=== PATIENT | female | born 1970 | race American Indian/Alaskan Native ===

== ENCOUNTER 2017-01-02 11:54 | Emergency (ER) | payer SELFPAY ==
[2017-01-02] MEDS ORDERED: CATAPRES ONE (12:09)
[2017-01-02] MEDS ORDERED: CATAPRES PO ONE (12:13)
[2017-01-02 12:19] LABS: Basophils % (Auto) 0.6 % (0.0-1.8); Eosinophils % (Auto) 2.7 % (0.0-4.3); Hematocrit 37.5 % (30.3-42.9); Hemoglobin 12.4 gm/dl (10.1-14.3); Mean Corpuscular HGB Conc 33 % (30-34); Mean Corpuscular Hemoglobin 28 pg (28-32); Mean Corpuscular Volume 84 fl (79-97); Platelet Count 225 K/mm3 (140-440); Red Blood Count 4.47 M/mm3 (3.65-5.03); Red Cell Distribution Width 13.7 % (13.2-15.2); White Blood Count 5.9 K/mm3 (4.5-11.0)
[2017-01-02 12:37] LABS: Blood Urea Nitrogen 9 mg/dL (7-17); Calcium 9.3 mg/dL (8.4-10.2); Carbon Dioxide 27 mmol/L (22-30); Glucose 429 mg/dL (65-100)
[2017-01-02 12:37] LABS: Bilirubin,Urine NEG (Negative); Blood,Urine NEG (Negative); Ketones,Urine NEG (Negative); Leukocyte Esterase,Urine TR (Negative); Mucus,Urine FEW /HPF; Nitrite,Urine NEG (Negative); Urobilinogen,Urine < 2.0 mg/dL (<2.0)
[2017-01-02 12:38] LABS: Anion Gap 17 mmol/L; Chloride 96.4 mmol/L (98-107); Potassium 4.3 mmol/L (3.6-5.0); Sodium 136 mmol/L (137-145)
--- NOTE | 2017-01-02 13:41 | Cat Scan Report ---
CRANIAL CT SCAN: History: Dizziness/hypertension. Serial contiguous axial images were obtained through the cranium. Intravenous contrast material was not administered. The ventricles are normal in size and appearance. There is no mass effect or midline shift. No areas of abnormally increased or decreased attenuation are seen. No mass lesion is seen. The mastoid air cells and visualized portions of the sinuses are normal. IMPRESSION: Cranial CT scan within normal limits.
[2017-01-02] MEDS ORDERED: NACL 0.9% 1000 ML 1,000 ML IV ONE (17:04)
--- NOTE | 2017-01-02 17:09 | Emergency Department Report ---
HPI - General Chief Complaint: High BP Time Seen by Provider: 01/02/17 16:51 - HPI HPI: Room 24 The patient is a 46-year-old female presenting with a chief complaint dizziness headache blurred vision hypertension and hyperglycemia. Patient states she's been out of her metformin and blood pressure medication for approximately one year. Patient states for the past 6-7 months she has had intermittent dizziness and headache associated with blurred vision. The patient states she still has a headache and gives a score of 8.5/10 Location: See above Duration: 7 months Quality:, Hyperglycemia Severity: Glucose 400s, headache 8.5/10 Modifying factors: [see above] Context: [see above] Mode of transportation: [not driving] ED Past Medical Hx - Past Medical History Hx Hypertension: Yes Hx Diabetes: Yes - Surgical History Additional Surgical History: Hysterectomy - Family History Family history: no significant - Social History Smoking Status: Never Smoker Substance Use Type: None - Medications Home Medications: Home Medications Medication Instructions Recorded Confirmed Last Taken Type Mv,Ca,Fe,Min/FA/Guarana/Caff [One 1 tab PO QDAY 01/02/17 01/02/17 Unknown History Daily Tablet] amLODIPine [Norvasc] 10 mg PO DAILY #90 tab 01/02/17 Unknown Rx metFORMIN [Glucophage] 500 mg PO BID #120 tablet 01/02/17 Unknown Rx ED Review of Systems ROS: Stated complaint: HBP/LOW SUGAR/DIZZY/BLURRED VISION Other details as noted in HPI Comment: All other systems reviewed and negative Constitutional: denies: chills, fever Eyes: vision change ENT: denies: ear pain, throat pain Respiratory: denies: cough, shortness of breath, wheezing Cardiovascular: denies: chest pain, palpitations Endocrine: other (hyperglycemia) Gastrointestinal: denies: abdominal pain, nausea, diarrhea Genitourinary: denies: urgency, dysuria, discharge Musculoskeletal: denies: back pain, joint swelling, arthralgia Skin: denies: rash, lesions Neurological: headache. denies: weakness, paresthesias Psychiatric: denies: anxiety, depression Hematological/Lymphatic: denies: easy bleeding, easy bruising Physical Exam - Physical Exam Vital Signs: Vital Signs 01/02/17 01/02/17 01/02/17 12:00 12:17 16:52 Temperature 98 F 98.1 F Pulse Rate 88 87 81 Respiratory 16 16 Rate Blood Pressure 227/137 227/137 Blood Pressure 138/95 [Right] O2 Sat by Pulse 98 100 Oximetry Physical Exam: GENERAL: The patient is well-developed well-nourished female lying on stretcher not appearing to be in acute distress. [] HEENT: Normocephalic. Atraumatic. Extraocular motions are intact. Patient has moist mucous membranes. NECK: Supple. Trachea midline CHEST/LUNGS: Clear to auscultation. There is no respiratory distress noted. HEART/CARDIOVASCULAR: Regular. There is no tachycardia. There is no gallop rub or murmur. ABDOMEN: Abdomen is soft, nontender. Patient has normal bowel sounds. There is no abdominal distention. SKIN: There is no rash. There is no edema. There is no diaphoresis. NEURO: The patient is awake, alert, and oriented. The patient is cooperative. The patient has no focal neurologic deficits. The patient has normal speech. Cranial nerves II through XII grossly intact, no drift, clean room assembler 5+/5 bilaterally MUSCULOSKELETAL: There is no evidence of acute injury. ED Course Vital Signs 01/02/17 01/02/17 01/02/17 12:00 12:17 16:52 Temperature 98 F 98.1 F Pulse Rate 88 87 81 Respiratory 16 16 Rate Blood Pressure 227/137 227/137 Blood Pressure 138/95 [Right] O2 Sat by Pulse 98 100 Oximetry ED Medical Decision Making - Lab Data Result diagrams: 01/02/17 12:06 01/02/17 12:06 Laboratory Tests 01/02/17 01/02/17 01/02/17 11:57 12:06 12:06 WBC 5.9 RBC 4.47 Hgb 12.4 Hct 37.5 MCV 84 MCH 28 MCHC 33 RDW 13.7 Plt Count 225 Lymph % (Auto) 33.8 [place] % (Auto) 5.4 Eos % (Auto) 2.7 Baso % (Auto) 0.6 Lymph # 2.0 [place] # 0.3 Eos # 0.2 Baso # 0.0 Seg Neutrophils % 57.5 Seg Neutrophils # 3.4 VBG pH Sodium 136 L Potassium 4.3 Chloride 96.4 L Carbon Dioxide 27 Anion Gap 17 BUN 9 Creatinine 0.6 L Estimated GFR > 60 BUN/Creatinine Ratio 15.00 Glucose 429 H POC Glucose 419 H Calcium 9.3 Urine Color Urine Turbidity Urine pH Ur Specific [place] Urine Protein Urine Glucose (UA) Urine Ketones Urine Blood Urine Nitrite Urine Bilirubin Urine Urobilinogen Ur Leukocyte Esterase Urine WBC (Auto) Urine RBC (Auto) U Epithel Cells (Auto) Urine Mucus 01/02/17 01/02/17 01/02/17 12:06 17:00 Unknown WBC RBC Hgb Hct MCV MCH MCHC RDW Plt Count Lymph % (Auto) [place] % (Auto) Eos % (Auto) Baso % (Auto) Lymph # [place] # Eos # Baso # Seg Neutrophils % Seg Neutrophils # VBG pH 7.337 Sodium Potassium Chloride Carbon Dioxide Anion Gap BUN Creatinine Estimated GFR BUN/Creatinine Ratio Glucose POC Glucose 454 H Calcium Urine Color Straw Urine Turbidity Clear Urine pH 6.0 Ur Specific [place] 1.028 Urine Protein 30 mg/dl Urine Glucose (UA) >=500 Urine Ketones Neg Urine Blood Neg Urine Nitrite Neg Urine Bilirubin Neg Urine Urobilinogen < 2.0 Ur Leukocyte Esterase Tr Urine WBC (Auto) 1.0 Urine RBC (Auto) 3.0 U Epithel Cells (Auto) 1.0 Urine Mucus Few - Radiology Data Radiology results: report reviewed (CT head), image reviewed (CT head) CT head (read by radiologist)-cranial CT scan within normal limits - Differential Diagnosis hypertension, hyperglycemia, DKA Critical care attestation.: If time is entered above; I have spent that time in minutes in the direct care of this critically ill patient, excluding procedure time. ED Disposition Clinical Impression: Uncontrolled hypertension, Uncontrolled diabetes mellitus Disposition: DISCHARGED TO HOME OR SELFCARE Is pt being admited?: No Does the pt Need Aspirin: No Condition: Stable Instructions: How to Check Your Blood Sugar (ED), Diabetes Mellitus Type 2 in Adults (ED), Hypertension (ED) Additional Instructions: Return to the emergency department immediately should you develop worsening symptoms, fever, inability to tolerate food or liquid or any other concerns. Prescriptions: amLODIPine [Norvasc] 10 mg PO DAILY #90 tab metFORMIN [Glucophage] 500 mg PO BID #120 tablet Referrals: MAX PETERSON MD [Staff Physician] - 3-5 Days Time of Disposition: 19:19
[2017-01-02 19:29] VITALS: BP 144/98
== END 2017-01-02 19:20 | disposition home or self-care (01) ==
LOC: ED 11:54
DX: I10 Essential (primary) hypertension (principal); E11.9 Type 2 diabetes mellitus without complications; Z90.710 Acquired absence of both cervix and uterus
CPT/HCPCS: 36415; 70450; 80048; 81001; 82805; 82962; 85025; 96361; 96374; 99285; J7030; J1815

== ENCOUNTER 2018-09-27 03:43 | Emergency (ER) | payer SELFPAY ==
[2018-09-27] MEDS ORDERED: CATAPRES ONE (04:28)
[2018-09-27] MEDS ORDERED: CATAPRES PO ONE ×2 (04:29→10:13)
[2018-09-27] MEDS ORDERED: ULTRAM PO ONE (08:33)
[2018-09-27] MEDS ORDERED: BICILLIN L-A IM ONE (08:33)
--- NOTE | 2018-09-27 08:33 | Emergency Department Report ---
ED ENT HPI - General Chief complaint: Dental/Oral Stated complaint: ABCESS ON GUMS Time Seen by Provider: 09/27/18 08:29 Source: patient Mode of arrival: Ambulatory Limitations: No Limitations - History of Present Illness Initial comments: This is a 47-year-old -Malag[place] female who presents to the and gum swelling for 1 week. Patient states she had a fractured tooth on the left lower side for several months which recently started bothering her couple weeks back. She noticed some swelling and discomfort over the past week. Now she is report ing pain is 10 out of 10 on pain scale and pain is worse with talking and eating. She reports pain as a throbbing constant sensation. She denies drooling, sore throat, difficulty swallowing, or fever. MD complaint: tooth pain Onset/Timin -: week(s) Location: tooth # (#18) 1 - Broken tooth and gum swelling Severity: severe Severity scale (0 -10): 10 Quality: constant, other (throbbing) Consistency: constant Improves with: none Worsens with: eating, movement Context- Dental: history of dental caries, poor dental care Associated Symptoms: gum swelling, toothache. denies: fever, cough, pain with swallowing, sore throat, tinnitus, hearing loss, discharge from ear, rhinorrhea - Related Data Home Medications Medication Instructions Recorded Confirmed Last Taken Mv-Mins/Folic Acid/Guarana/Caf 1 tab PO QDAY 01/02/17 01/02/17 Unknown [One Daily Tablet] Previous Rx's Medication Instructions Recorded Last Taken Type amLODIPine [Norvasc] 10 mg PO DAILY #90 tab 01/02/17 Unknown Rx metFORMIN [Glucophage] 500 mg PO BID #120 tablet 01/02/17 Unknown Rx Acetaminophen/Codeine [Tylenol 1 tab PO Q6H PRN #12 tab 09/27/18 Unknown Rx /Codeine # 3 tab] Amlodipine Besylate [Norvasc] 5 mg PO DAILY #30 tablet 09/27/18 Unknown Rx Clindamycin [Clindamycin CAP] 300 mg PO Q6H #21 capsule 09/27/18 Unknown Rx Naproxen [Naprosyn] 500 mg PO TID #15 tablet 09/27/18 Unknown Rx hydroCHLOROthiazide 12.5 mg PO DAILY #30 tablet 09/27/18 Unknown Rx [Hydrochlorothiazide] metFORMIN [Glucophage] 500 mg PO BID #120 tablet 09/27/18 Unknown Rx Allergies Allergy/AdvReac Type Severity Reaction Status Date / Time No Known Allergies Allergy Unverified 02/06/16 07:52 ED Dental HPI - General Chief complaint: Dental/Oral Stated complaint: ABCESS ON GUMS Time Seen by Provider: 09/27/18 08:29 Source: patient Mode of arrival: Ambulatory Limitations: No Limitations - Related Data Home Medications Medication Instructions Recorded Confirmed Last Taken Mv-Mins/Folic Acid/Guarana/Caf 1 tab PO QDAY 01/02/17 01/02/17 Unknown [One Daily Tablet] Previous Rx's Medication Instructions Recorded Last Taken Type amLODIPine [Norvasc] 10 mg PO DAILY #90 tab 01/02/17 Unknown Rx metFORMIN [Glucophage] 500 mg PO BID #120 tablet 01/02/17 Unknown Rx Acetaminophen/Codeine [Tylenol 1 tab PO Q6H PRN #12 tab 09/27/18 Unknown Rx /Codeine # 3 tab] Amlodipine Besylate [Norvasc] 5 mg PO DAILY #30 tablet 09/27/18 Unknown Rx Clindamycin [Clindamycin CAP] 300 mg PO Q6H #21 capsule 09/27/18 Unknown Rx Naproxen [Naprosyn] 500 mg PO TID #15 tablet 09/27/18 Unknown Rx hydroCHLOROthiazide 12.5 mg PO DAILY #30 tablet 09/27/18 Unknown Rx [Hydrochlorothiazide] metFORMIN [Glucophage] 500 mg PO BID #120 tablet 09/27/18 Unknown Rx Allergies Allergy/AdvReac Type Severity Reaction Status Date / Time No Known Allergies Allergy Unverified 02/06/16 07:52 ED Review of Systems ROS: Stated complaint: ABCESS ON GUMS Other details as noted in HPI Constitutional: denies: chills, fever ENT: dental pain. denies: ear pain, throat pain, hearing loss, epistaxis, congestion Respiratory: denies: cough, shortness of breath, wheezing Cardiovascular: denies: chest pain, palpitations Gastrointestinal: denies: abdominal pain, nausea, diarrhea Neurological: denies: headache, weakness, paresthesias Psychiatric: denies: anxiety, depression ED Past Medical Hx - Past Medical History Previous Medical History?: Yes Hx Hypertension: Yes Hx Diabetes: Yes - Surgical History Additional Surgical History: Hysterectomy - Social History Smoking Status: Never Smoker Substance Use Type: Alcohol - Medications Home Medications: Home Medications Medication Instructions Recorded Confirmed Last Taken Type Mv-Mins/Folic Acid/Guarana/Caf 1 tab PO QDAY 01/02/17 01/02/17 Unknown History [One Daily Tablet] amLODIPine [Norvasc] 10 mg PO DAILY #90 tab 01/02/17 Unknown Rx metFORMIN [Glucophage] 500 mg PO BID #120 tablet 01/02/17 Unknown Rx Acetaminophen/Codeine [Tylenol 1 tab PO Q6H PRN #12 tab 09/27/18 Unknown Rx /Codeine # 3 tab] Amlodipine Besylate [Norvasc] 5 mg PO DAILY #30 tablet 09/27/18 Unknown Rx Clindamycin [Clindamycin CAP] 300 mg PO Q6H #21 capsule 09/27/18 Unknown Rx Naproxen [Naprosyn] 500 mg PO TID #15 tablet 09/27/18 Unknown Rx hydroCHLOROthiazide 12.5 mg PO DAILY #30 tablet 09/27/18 Unknown Rx [Hydrochlorothiazide] metFORMIN [Glucophage] 500 mg PO BID #120 tablet 09/27/18 Unknown Rx ED Physical Exam - General Limitations: No Limitations General appearance: alert, in no apparent distress, obese (morbidly obese) - ENT ENT exam: Present: mucous membranes moist, other (partial tooth #18, mucosal swelling, tenderness, and no palpable pockets or drainage) - Neck Neck exam: Present: normal inspection - Respiratory Respiratory exam: Present: normal lung sounds bilaterally. Absent: respiratory distress - Cardiovascular Cardiovascular Exam: Present: regular rate, normal rhythm. Absent: systolic murmur, diastolic murmur, rubs, gallop - GI/Abdominal GI/Abdominal exam: Present: soft, normal bowel sounds - Neurological Exam Neurological exam: Present: alert, oriented X3, normal gait - Psychiatric Psychiatric exam: Present: normal affect, normal mood - Skin Skin exam: Present: warm, dry, intact, normal color. Absent: rash ED Course Vital Signs 09/27/18 09/27/18 09/27/18 03:58 04:42 08:57 Temperature 97.8 F Pulse Rate 81 81 82 Respiratory 20 20 Rate Blood Pressure 248/137 248/137 Blood Pressure 212/129 [Left] O2 Sat by Pulse 100 99 Oximetry 09/27/18 09/27/18 09/27/18 09:21 10:10 10:23 Temperature Pulse Rate 82 86 86 Respiratory 17 Rate Blood Pressure 212/129 204/115 Blood Pressure 204/115 [Left] O2 Sat by Pulse 98 Oximetry 09/27/18 13:21 Temperature Pulse Rate 79 Respiratory Rate Blood Pressure Blood Pressure 139/77 [Left] O2 Sat by Pulse Oximetry - Reevaluation(s) Reevaluation #1: 09/27/18 08:56 History of hypertension and off medication for several months. Blood pressure remains to 48/137 after clonidine. Given amlodipine and hydrochlorothiazide. Reevaluation #2: 09/27/18 10:17 Blood pressure remains elevated. Ordered labs and given clonidine 0.1 mg po. Reevaluation #3: 09/27/18 13:27 Patient's blood pressure 139/77 and glucose 231. Patient will be started on blood pressure medication and refill her metformin. She will need to follow-up with her primary care provider. ED Medical Decision Making - Lab Data Result diagrams: 09/27/18 10:18 09/27/18 10:18 - Medical Decision Making This is a 47-year-old female that presents with tooth abscess, gum swelling, and fractured tooth #18. Patient is stable and was examined by me. Blood pressure elevated on arrival. Patient was given clonidine while in triage. Susceptible of fractured tooth. Given tramadol once in ER. Start clindamycin, Tylenol No. 3, and naproxen. On reevaluation blood pressure remained elevated. Given amlodipine 5 mg by mouth 1 and hydrochlorothiazide 12.5 mg by mouth once. Patient has a history of hypertension and diabetes. Consulted attending, Dr. Dillon regarding elevated blood pressure. Obtained a BMP in CBC. Glucose 372. IV site initiated. Patient given regular insulin per protocol and normal saline. She has been off medication for several months. Start amlodipine, hydrochlorothiazide, and metformin. Patient will follow up with a primary care doctor [facility] or [facility]. Referral to emergency dental clinics. Discussed plan with patient. She agreed with ER plan. Discharged home stable. Follow up with dentist and PCP. Critical care attestation.: If time is entered above; I have spent that time in minutes in the direct care of this critically ill patient, excluding procedure time. ED Disposition Clinical Impression: Toothache, Asymptomatic hypertension Fractured tooth Qualifiers: Encounter type: initial encounter Fracture type: closed Qualified Code(s): S02.5XXA - Fracture of tooth (traumatic), initial encounter for closed fracture Uncontrolled diabetes mellitus Qualifiers: Diabetes mellitus type: type 2 Glycemic state: with hyperglycemia Qualified Code(s): E11.65 - Type 2 diabetes mellitus with hyperglycemia Disposition: TO HOME OR SELFCARE Is pt being admited?: No Does the pt Need Aspirin: No Condition: Stable Instructions: Diabetes Mellitus Type 2 in Adults (ED), Acute dental trauma (ED), DASH Eating Plan (ED), Hypertension (ED), Toothache (ED) Additional Instructions: Complete all days of clindamycin as prescribed. The pain medication every 6 hours as needed for pain. Follow up with Dentist in 24-72 hours. Prescriptions: Acetaminophen/Codeine [Tylenol /Codeine # 3 tab] 1 tab PO Q6H PRN #12 tab PRN Reason: Pain , Severe (7-10) Amlodipine Besylate [Norvasc] 5 mg PO DAILY #30 tablet Clindamycin [Clindamycin CAP] 300 mg PO Q6H #21 capsule hydroCHLOROthiazide [Hydrochlorothiazide] 12.5 mg PO DAILY #30 tablet metFORMIN [Glucophage] 500 mg PO BID #120 tablet Naproxen [Naprosyn] 500 mg PO TID #15 tablet Referrals: [facility] [Outside] - 3-5 Days [facility] [Outside] - 3-5 Days [facility] [Outside] - 3-5 Days [facility] [Outside] - 3-5 Days [facility] [Outside] - 3-5 Days Forms: Work/School Release Form(ED) Time of Disposition: 08:39
[2018-09-27] MEDS ORDERED: HCTZ PO ONE (08:57)
[2018-09-27] MEDS ORDERED: NORVASC PO ONE (08:57)
[2018-09-27 10:29] LABS: Basophils % (Auto) 0.7 % (0.0-1.8); Eosinophils # (Auto) 0.1 K/mm3 (0.0-0.4); Eosinophils % (Auto) 1.4 % (0.0-4.3); Hematocrit 35.8 % (30.3-42.9); Hemoglobin 12.1 gm/dl (10.1-14.3); Lymphocytes # (Auto) 1.6 K/mm3 (1.2-5.4); Lymphocytes % (Auto) 22.6 % (13.4-35.0); Mean Corpuscular HGB Conc 34 % (30-34); Mean Corpuscular Volume 81 fl (79-97); Monocytes # (Auto) 0.3 K/mm3 (0.0-0.8); Monocytes % (Auto) 4.5 % (0.0-7.3); Platelet Count 259 K/mm3 (140-440); Red Blood Count 4.43 M/mm3 (3.65-5.03); Red Cell Distribution Width 14.3 % (13.2-15.2)
[2018-09-27 10:49] LABS: BUN/Creatinine Ratio 15; Blood Urea Nitrogen 9 mg/dL (7-17); Calcium 9.2 mg/dL (8.4-10.2); Hemolysis Index 3
[2018-09-27] MEDS ORDERED: HumuLIN R IV ONE ×2 (10:54→10:57)
[2018-09-27] MEDS ORDERED: NACL 0.9% 500 ML 500 ML IV ONE (10:54)
[2018-09-27 13:22] VITALS: BP 139/77
== END 2018-09-27 13:42 | disposition home or self-care (01) ==
LOC: ED 03:43
DX: S02.5XXA Fracture of tooth (traumatic), initial encounter for closed fracture (principal); I10 Essential (primary) hypertension; E11.65 Type 2 diabetes mellitus with hyperglycemia; Z90.710 Acquired absence of both cervix and uterus; E66.01 Morbid (severe) obesity due to excess calories; X58.XXXA Exposure to other specified factors, initial encounter; Y93.89 Activity, other specified; Y92.89 Other specified places as the place of occurrence of the external cause; Y99.8 Other external cause status
CPT/HCPCS: 36415; 80048; 82962; 85025; 96361; 96372; 96374; 99284; J0561; J7040; J1815

== ENCOUNTER 2019-03-07 09:27 | Emergency (ER) | payer SELFPAY ==
[2019-03-07] MEDS ORDERED: ZOFRAN IV ONE (09:51)
[2019-03-07] MEDS ORDERED: NACL 0.9% 1000 ML 1,000 ML IV ONE (09:51)
[2019-03-07] MEDS ORDERED: NORMODYNE IV ONE (09:52)
--- NOTE | 2019-03-07 09:57 | Emergency Department Report ---
HPI - General Chief Complaint: High BP Time Seen by Provider: 03/07/19 09:44 - HPI HPI: Room 2 The patient is a 48-year-old female presenting with chief complaint dizziness. Patient states she went to sleep last night her usual state of health. The pa leobardo states this morning when she waking the room spinning. Patient denies headache. Patient states the dizziness worsens whenever she is supine. The patient states she has not had her medication for diabetes or hypertension. 4 months. Patient admits to nausea and vomiting. Location: [See above] Duration: [See above] Quality: [See above] Severity: [See above] Modifying factors: [see above] Context: [see above] Mode of transportation: [not driving] ED Past Medical Hx - Past Medical History Previous Medical History?: Yes Hx Hypertension: Yes Hx Diabetes: Yes - Surgical History Past Surgical History?: Yes Additional Surgical History: Hysterectomy - Family History Family history: no significant - Social History Smoking Status: Never Smoker Substance Use Type: None (denies illicit drug use), Alcohol (occasional) - Medications Home Medications: Home Medications Medication Instructions Recorded Confirmed Last Taken Type Mv-Mins/Folic Acid/Guarana/Caf 1 tab PO QDAY 01/02/17 01/02/17 Unknown History [One Daily Tablet] metFORMIN [Glucophage] 500 mg PO BID #120 tablet 01/02/17 Unknown Rx Acetaminophen/Codeine [Tylenol 1 tab PO Q6H PRN #12 tab 09/27/18 Unknown Rx /Codeine # 3 tab] Amlodipine Besylate [Norvasc] 5 mg PO DAILY #30 tablet 09/27/18 Unknown Rx Clindamycin [Clindamycin CAP] 300 mg PO Q6H #21 capsule 09/27/18 Unknown Rx Naproxen [Naprosyn] 500 mg PO TID #15 tablet 09/27/18 Unknown Rx hydroCHLOROthiazide 12.5 mg PO DAILY #30 tablet 09/27/18 Unknown Rx [Hydrochlorothiazide] metFORMIN [Glucophage] 500 mg PO BID #120 tablet 09/27/18 Unknown Rx Fluconazole [Diflucan TAB] 150 mg PO ONCE #1 tablet 03/07/19 Unknown Rx Meclizine [Antivert] 25 mg PO TID PRN #20 tablet 03/07/19 Unknown Rx Promethazine [Phenergan] 25 mg PO Q6HR PRN #10 tab 03/07/19 Unknown Rx amLODIPine [Norvasc] 10 mg PO DAILY #90 tab 03/07/19 Unknown Rx ED Review of Systems ROS: Stated complaint: LOW BLOOD PRESSURE/SUGAR HIGH Other details as noted in HPI Constitutional: denies: fever Eyes: denies: eye pain ENT: denies: throat pain Respiratory: no symptoms reported Cardiovascular: denies: chest pain Endocrine: no symptoms reported Gastrointestinal: nausea, vomiting Genitourinary: denies: dysuria Musculoskeletal: denies: back pain Neurological: vertigo. denies: headache Physical Exam - Physical Exam Vital Signs: Vital Signs 03/07/19 09:31 Pulse Rate 79 Respiratory 18 Rate Blood Pressure 249/134 O2 Sat by Pulse 97 Oximetry Physical Exam: GENERAL: The patient is well-developed well-nourished female lying on stretcher not appearing to be in acute distress. [] HEENT: Normocephalic. Atraumatic. Extraocular motions are intact. Patient has moist mucous membranes. No nystagmus noted NECK: Supple. Trachea midline CHEST/LUNGS: Clear to auscultation. There is no respiratory distress noted. HEART/CARDIOVASCULAR: Regular. There is no tachycardia. There is no gallop rub or murmur. ABDOMEN: Abdomen is soft, nontender. Patient has normal bowel sounds. There is no abdominal distention. SKIN: There is no rash. There is no edema. There is no diaphoresis. NEURO: The patient is awake, alert, and oriented. The patient is cooperative. The patient has no focal neurologic deficits. The patient has normal speech. Cranial nerves II through XII grossly intact, no drift MUSCULOSKELETAL: There is no evidence of acute injury. ED Course Vital Signs 03/07/19 09:31 Pulse Rate 79 Respiratory 18 Rate Blood Pressure 249/134 O2 Sat by Pulse 97 Oximetry ED Medical Decision Making - Lab Data Result diagrams: 03/07/19 09:54 03/07/19 09:54 - EKG Data -: EKG Interpreted by Me EKG shows normal: sinus rhythm Rate: normal - EKG Data When compared to previous EKG there are: changes noted Interpretation: nonspecific ST-T wave shashi (T-wave inversions in leads 1 and aVL) - Radiology Data Radiology results: report reviewed (CT head), image reviewed (CT head) [facility] [address] [place] [address] Cat Scan Report Signed Patient: CHRISS HEART MR#: [id number] : 1970 Acct:[id number] Age/Sex: 48 / F ADM Date: 03/07/19 Loc: ED Attending Dr: Ordering Physician: UMM WATSON MD Date of Service: 03/07/19 Procedure(s): CT head/brain wo con Accession Number(s): [id number] cc: UMM WATSON MD CLINICAL DATA: hypertension, vertigo TECHNICAL DATA: Axial CT images with multiplanar reconstructions through the brain were performed without intravenous contrast. Images are presented in the axial, coronal and sagittal imaging planes. All CT scans at this location are performed using CT dose reduction for ALARA by means of automated exposure control. FINDINGS: There is no evidence of intraparenchymal hemorrhage, intraparenchymal mass lesion, or midline shift. The layne-white matter configuration is normal. There is no evidence of abnormal parenchymal attenuation density. The ventricular system, basal cisterns, and cortical sulci are normal in size and configuration. There is no evidence of abnormal extraaxial fluid collections. The visualized orbital and sinus structures are normal. The calvarium is intact. IMPRESSION: Unremarkable unenhanced cranial CT. Signer Name: Bertin Ramirez MD Signed: 03/07/2019 11:05 AM Workstation Name: [id number] Transcribed By: WG Dictated By: Bertin Ramirez MD Electronically Authenticated By: Bertin Ramirez MD Signed Date/Time: 03/07/19 1105 DD/ 1104 TD/TT: - Differential Diagnosis hypertensive urgency, DKA, vertigo, ICH Critical care attestation.: If time is entered above; I have spent that time in minutes in the direct care of this critically ill patient, excluding procedure time. ED Disposition Clinical Impression: Vertigo, Hypertensive urgency Disposition: DC-01 TO HOME OR SELFCARE Is pt being admited?: No Does the pt Need Aspirin: No Condition: Stable Instructions: Hypertension (ED) Additional Instructions: Return to the emergency department immediately should you develop worsening symptoms, fever, inability to tolerate food or liquid or any other concerns. Prescriptions: Meclizine [Antivert] 25 mg PO TID PRN #20 tablet PRN Reason: Vertigo Fluconazole [Diflucan TAB] 150 mg PO ONCE #1 tablet amLODIPine [Norvasc] 10 mg PO DAILY #90 tab Promethazine [Phenergan] 25 mg PO Q6HR PRN #10 tab PRN Reason: Nausea Referrals: TORO MAGALLON MD [Primary Care Provider] - 3-5 Days Time of Disposition: 12:58
[2019-03-07 10:13] LABS: INR 0.9 (0.87-1.13)
[2019-03-07 10:14] LABS: Basophils % (Auto) 0.8 % (0.0-1.8); Eosinophils # (Auto) 0.1 K/mm3 (0.0-0.4); Eosinophils % (Auto) 2.6 % (0.0-4.3); Hematocrit 39.7 % (30.3-42.9); Hemoglobin 13.2 gm/dl (10.1-14.3); Lymphocytes # (Auto) 2.2 K/mm3 (1.2-5.4); Lymphocytes % (Auto) 37.9 % (13.4-35.0); Mean Corpuscular HGB Conc 33 % (30-34); Mean Corpuscular Volume 83 fl (79-97); Monocytes # (Auto) 0.4 K/mm3 (0.0-0.8); Platelet Count 233 K/mm3 (140-440); Red Blood Count 4.79 M/mm3 (3.65-5.03); Red Cell Distribution Width 14.7 % (13.2-15.2)
[2019-03-07 10:18] LABS: Alanine Aminotransferase 23 units/L (7-56); BUN/Creatinine Ratio 11; Blood Urea Nitrogen 9 mg/dL (7-17); Calcium 9.8 mg/dL (8.4-10.2); Hemolysis Index 9
--- NOTE | 2019-03-07 11:09 | Cat Scan Report ---
CLINICAL DATA: hypertension, vertigo TECHNICAL DATA: Axial CT images with multiplanar reconstructions through the brain were performed without intravenous contrast. Images are presented in the axial, coronal and sagittal imaging planes. All CT scans at this location are performed using CT dose reduction for ALARA by means of automated e xposure control. FINDINGS: There is no evidence of intraparenchymal hemorrhage, intraparenchymal mass lesion, or midline shift. The layne-white matter configuration is normal. There is no evidence of abnormal parenchymal attenuat ion density. The ventricular system, basal cisterns, and cortical sulci are normal in size and config uration. There is no evidence of abnormal extraaxial fluid collections. The visualized orbital and sinus structures are normal. The calvarium is intact. IMPRESSION: Unremarkable unenhanced cranial CT. Signer Name: Bertin Ramirez MD Signed: 03/07/2019 11:05 AM Workstation Name: [id number]
[2019-03-07] MEDS ORDERED: CATAPRES PO ONE (11:12)
[2019-03-07] MEDS ORDERED: ANTIVERT PO ONE (11:12)
[2019-03-07] MEDS ORDERED: HumuLIN R IV ONE ×2 (11:58→13:02)
[2019-03-07 12:26] LABS: Bilirubin,Urine NEG (Negative); Blood,Urine NEG (Negative); Color,Urine Yellow (Yellow); Urobilinogen,Urine < 2.0 mg/dL (<2.0)
[2019-03-07] MEDS ORDERED: ATIVAN IV ONE (12:31)
[2019-03-07] MEDS ORDERED: ATIVAN ONE (12:34)
[2019-03-07 13:54] VITALS: BP 155/104
== END 2019-03-07 14:22 | disposition home or self-care (01) ==
LOC: ED 09:27
DX: I10 Essential (primary) hypertension (principal); E11.9 Type 2 diabetes mellitus without complications
CPT/HCPCS: 36415; 70450; 80053; 81001; 82805; 82962; 85025; 85610; 85730; 93005; 93010; 96361; 96374; 96375; 96376; 99284; J2060; J2405; J7030; J1815

== ENCOUNTER 2019-09-25 14:48 | Emergency (ER) | payer SELFPAY ==
--- NOTE | 2019-09-25 15:05 | Event Note ---
ED Screening Note ED Screening Note: 48 yo female comes to ED for BP refill. SBP 237 mm Hg This initial assessment/diagnostic orders/clinical plan/treatment(s) is/are subject to change based on patients health status, clinical progression and re- assessment by fellow clinical providers in the ED. Further treatment and workup at subsequent clinical providers discretion. Patient/guardian urged not to elope from the ED as their condition may be serious if not clinically assessed and managed. Initial orders include: Labetalol ordered
--- NOTE | 2019-09-25 16:04 | Emergency Department Report ---
ED General Adult HPI - General Chief complaint: Recheck/Abnormal Lab/Rx Stated complaint: MED REFILL Time Seen by Provider: 09/25/19 15:18 Source: patient Mode of arrival: Ambulatory Limitations: No Limitations - History of Present Illness Initial comments: 48-year-old -[place] female patient with a history of diabetes and hypertension presents for blood pressure medication refill today. Patient states she has been out of her amlodipine 10 mg for 1.5 months. She states she was diagnosed with hypertension here in the ED about 1 year ago and has been following up in the ED for refills of amlodipine since her diagnosis. Patient states she has not seen a primary care provider in the past year due to lack of insurance, however states she now has insurance and will make an appointment to see her primary care doctor within the next 1 to 2 months. She denies any headache, vision changes, chest pain, shortness of breath, swelling, confusion, speech changes, numbness/tingling/weakness in her limbs, or difficulty with ambulation. She reports that she is compliant with her Metformin. - Related Data Home Medications Medication Instructions Recorded Confirmed Last Taken Mv-Mins/Folic Acid/Guarana/Caf 1 tab PO QDAY 01/02/17 01/02/17 Unknown [One Daily Tablet] Previous Rx's Medication Instructions Recorded Last Taken Type metFORMIN [Glucophage] 500 mg PO BID #120 tablet 01/02/17 Unknown Rx Acetaminophen/Codeine [Tylenol 1 tab PO Q6H PRN #12 tab 09/27/18 Unknown Rx /Codeine # 3 tab] Amlodipine Besylate [Norvasc] 5 mg PO DAILY #30 tablet 09/27/18 Unknown Rx Clindamycin [Clindamycin CAP] 300 mg PO Q6H #21 capsule 09/27/18 Unknown Rx Naproxen [Naprosyn] 500 mg PO TID #15 tablet 09/27/18 Unknown Rx hydroCHLOROthiazide 12.5 mg PO DAILY #30 tablet 09/27/18 Unknown Rx [Hydrochlorothiazide] metFORMIN [Glucophage] 500 mg PO BID #120 tablet 09/27/18 Unknown Rx Fluconazole [Diflucan TAB] 150 mg PO ONCE #1 tablet 03/07/19 Unknown Rx Meclizine [Antivert] 25 mg PO TID PRN #20 tablet 03/07/19 Unknown Rx Promethazine [Phenergan] 25 mg PO Q6HR PRN #10 tab 03/07/19 Unknown Rx amLODIPine 10 mg PO DAILY #90 tab 03/07/19 Unknown Rx amLODIPine 10 mg PO DAILY 60 Days #60 tab 09/25/19 Unknown Rx hydroCHLOROthiazide [HCTZ] 25 mg PO QDAY 30 Days #30 tablet 09/25/19 Unknown Rx Allergies Allergy/AdvReac Type Severity Reaction Status Date / Time No Known Allergies Allergy Verified 09/25/19 14:49 ED Review of Systems ROS: Stated complaint: MED REFILL Other details as noted in HPI Comment: All other systems reviewed and negative ED Past Medical Hx - Past Medical History Hx Hypertension: Yes Hx Diabetes: Yes - Surgical History Additional Surgical History: Hysterectomy - Social History Smoking Status: Never Smoker Substance Use Type: None - Medications Home Medications: Home Medications Medication Instructions Recorded Confirmed Last Taken Type Mv-Mins/Folic Acid/Guarana/Caf 1 tab PO QDAY 01/02/17 01/02/17 Unknown History [One Daily Tablet] metFORMIN [Glucophage] 500 mg PO BID #120 tablet 01/02/17 Unknown Rx Acetaminophen/Codeine [Tylenol 1 tab PO Q6H PRN #12 tab 09/27/18 Unknown Rx /Codeine # 3 tab] Amlodipine Besylate [Norvasc] 5 mg PO DAILY #30 tablet 09/27/18 Unknown Rx Clindamycin [Clindamycin CAP] 300 mg PO Q6H #21 capsule 09/27/18 Unknown Rx Naproxen [Naprosyn] 500 mg PO TID #15 tablet 09/27/18 Unknown Rx hydroCHLOROthiazide 12.5 mg PO DAILY #30 tablet 09/27/18 Unknown Rx [Hydrochlorothiazide] metFORMIN [Glucophage] 500 mg PO BID #120 tablet 09/27/18 Unknown Rx Fluconazole [Diflucan TAB] 150 mg PO ONCE #1 tablet 03/07/19 Unknown Rx Meclizine [Antivert] 25 mg PO TID PRN #20 tablet 03/07/19 Unknown Rx Promethazine [Phenergan] 25 mg PO Q6HR PRN #10 tab 03/07/19 Unknown Rx amLODIPine 10 mg PO DAILY #90 tab 03/07/19 Unknown Rx amLODIPine 10 mg PO DAILY 60 Days #60 tab 09/25/19 Unknown Rx hydroCHLOROthiazide [HCTZ] 25 mg PO QDAY 30 Days #30 tablet 09/25/19 Unknown Rx ED Physical Exam - General Limitations: No Limitations General appearance: alert, in no apparent distress, obese - Head Head exam: Present: atraumatic, normocephalic - Eye Eye exam: Present: normal appearance, PERRL. Absent: scleral icterus - Neck Neck exam: Present: normal inspection, full ROM - Respiratory Respiratory exam: Present: normal lung sounds bilaterally. Absent: respiratory distress - Cardiovascular Cardiovascular Exam: Present: regular rate, normal rhythm. Absent: systolic murmur, diastolic murmur, rubs, gallop - Extremities Exam Extremities exam: Present: normal inspection. Absent: calf tenderness (No edema noted) - Back Exam Back exam: Present: normal inspection - Neurological Exam Neurological exam: Present: alert, oriented X3 - Psychiatric Psychiatric exam: Present: normal affect, normal mood - Skin Skin exam: Present: warm, dry, intact, normal color. Absent: rash ED Course Vital Signs 09/25/19 09/25/19 09/25/19 15:02 15:34 16:35 Temperature 97.8 F Pulse Rate 94 H 87 83 Respiratory 18 18 Rate Blood Pressure 237/140 195/129 Blood Pressure 202/106 [Left] O2 Sat by Pulse 98 Oximetry ED Medical Decision Making - Medical Decision Making 48-year-old -[place] female patient with a history of diabetes and hypertension presents for blood pressure medication refill today. Patient states she has been out of her amlodipine 10 mg for 1.5 months. Patient was first given amlodipine here in the ED a year ago and has been following up in the ED for refills. She denies any physical complaints currently. She reports that her blood pressure on amlodipine is normally around 200/100. Labetalol 200 mg given p.o. Blood pressure now 202/106. Patient continues to deny symptoms. She is nontoxic-appearing and stable for discharge home. Prescription for hydrochlorothiazide 25 mg given to take in addition to her amlodipine 10 mg. Discussed in detail ways to control blood pressure and importance of blood pressure monitoring daily. Patient given information for follow-up with Dr. Ramos in 3-5 days. Discussed strict return precautions in great detail with patient who verbalizes understanding Critical care attestation.: If time is entered above; I have spent that time in minutes in the direct care of this critically ill patient, excluding procedure time. ED Disposition Clinical Impression: Uncontrolled hypertension Disposition: DC TO HOME OR SELFCARE Is pt being admited?: No Condition: Stable Instructions: Hypertension (ED) Prescriptions: amLODIPine 10 mg PO DAILY 60 Days #60 tab hydroCHLOROthiazide [HCTZ] 25 mg PO QDAY 30 Days #30 tablet Referrals: PRIMARY CARE, [Primary Care Provider] - 3-5 Days
[2019-09-25 16:36] VITALS: BP 202/106
== END 2019-09-25 17:16 | disposition home or self-care (01) ==
LOC: ED 14:48
DX: I10 Essential (primary) hypertension (principal); E11.9 Type 2 diabetes mellitus without complications; Z90.710 Acquired absence of both cervix and uterus; Z79.899 Other long term (current) drug therapy; Z76.0 Encounter for issue of repeat prescription
CPT/HCPCS: 99282

== ENCOUNTER 2022-02-20 15:50 | Emergency (ER) | payer SELFPAY ==
[2022-02-20] MEDS ORDERED: cloNIDine 0.2 MG TAB PO ONE (16:09)
[2022-02-20 18:24] VITALS: BP 173/95
== END 2022-02-21 04:30 | disposition left against medical advice (07) ==
LOC: ED 15:50
DX: I10 Essential (primary) hypertension (principal); Z53.21 Procedure and treatment not carried out due to patient leaving prior to being seen by health care provider